=== PATIENT | male | born 1995 | race Two or more races ===

== ENCOUNTER 2017-12-06 17:27 | Emergency (ER) | payer MEDICAID, OTHER ==
[~2017-12-06] VITALS: Ht 190.5 cm; Wt 119.6 kg
[2017-12-06 17:42] VITALS: BP 132/78
[2017-12-06] MEDS ORDERED: DIAZEPAM 5 MG TABLET ONE (18:26)
[2017-12-06] MEDS ORDERED: HYDROcodone/APAP 5/325 TABLET ONE (18:26)
[2017-12-06] MEDS ORDERED: KETOROLAC 30 MG/1 ML ONE (18:27)
[2017-12-06] MEDS ORDERED: DIAZEPAM 5 MG TABLET PO ONE (18:30)
[2017-12-06] MEDS ORDERED: HYDROcodone/APAP 5/325 TABLET PO ONE (18:30)
[2017-12-06] MEDS ORDERED: KETOROLAC 30 MG/1 ML IM ONE (18:30)
== END 2017-12-06 18:53 | disposition home or self-care (01) ==
LOC: ED 18:05
DX: S29.012A Strain of muscle and tendon of back wall of thorax, initial encounter (principal); X58.XXXA Exposure to other specified factors, initial encounter; Y93.89 Activity, other specified; Y92.89 Other specified places as the place of occurrence of the external cause; Y99.8 Other external cause status
CPT/HCPCS: 96372; 99283; J1885